=== PATIENT | female | born 2000 | race Hispanic/Latino ===

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

== ENCOUNTER 2019-07-16 13:14 | Emergency (ER) | payer SELFPAY ==
[2019-07-16 13:53] LABS: #Basophils 0.1 thou/uL (0.0-0.2); #Eosinphils 0.1 thou/uL (0.0-0.7); #Lymphocytes 2.4 thou/uL (1.20-3.40); #Monocytes 0.4 thou/uL (0.11-0.59); #Neutrophils 3.7 thou/uL (1.40-6.50); %Basophils 1.1 % (0.0-1.0); %Eosinophils 0.9 % (0.0-10.0); %Lymphocytes 35.8 % (28.0-48.0); %Monocytes 6.4 % (0.0-4.0); %Neutrophils 55.8 % (31.0-61.0); Hemoglobin 13.9 g/dL (12.0-16.0); Mean Corpuscular HGB CONC 33.5 g/dL (32.0-36.0); Mean Corpuscular Hemoglobin 31.7 pg (25.0-35.0); Mean Corpuscular Volume 94.5 fL (78.0-98.0); Mean Platelet Volume 8.5 fL (7.4-10.4); Platelet Count 229 thou/uL (130-400); RBC Distribution Width 11.2 % (11.5-14.5); Red Blood Cell (RBC) Count 4.39 mill/uL (4.00-5.20); White Blood Cell (WBC) Count 6.6 thou/uL (4.8-10.8)
[2019-07-16 14:05] LABS: Bilirubin Negative (Negative); Blood, Urine 3+ (Negative); Clarity Turbid (Clear); Glucose, Urine (Dipstick) Normal (Negative); Leukocyte 250 Leu/uL (Negative); Nitrite Negative (Negative); Protein, Urine (Dipstick) 100 mg/dL (Neg-Trace); RBC/HPF Greater than 50 HPF (0-3); Squamous Epithelial 21-50 HPF (0-3); WBC/HPF Greater than 50 HPF (0-3)
[2019-07-16 14:07] LABS: BHCG - Serum Negative (NEGATIVE); Pregs Control Background? CLEAR/WHITE (CLR/WHITE); Pregs Control Bar Appear? YES (CONTROL BAR)
[2019-07-16 14:12] LABS: Bacteria/HPF 1+ HPF (None Seen)
[2019-07-16 14:13] LABS: ALT (SGPT) 11 U/L (8-55); AST (SGOT) 13 U/L (5-30); Albumin 4.5 g/dL (3.5-5.0); Alkaline Phosphatase 78 U/L (40-100); Anion Gap 11 mmol/L (10-20); BUN (Urea Nitrogen) 13 mg/dL (8.4-21.0); Bilirubin, Total 0.6 mg/dL (0.2-1.2); Calc. Creatinine Clearance 0 mL/min (70-130); Calcium 9.5 mg/dL (7.8-10.44); Carbon Dioxide 26 mmol/L (22-29); Chloride 106 mmol/L (98-107); Estimated GFR-MDRD Greater than 90; Globulin 2.8 g/dL (2.4-3.5); Glucose 92 mg/dL (70-105); Protein, Total 7.3 g/dL (6.0-8.3); Sodium 139 mmol/L (136-145)
[2019-07-16] MEDS ORDERED: Ketorolac Tromethamine 30 MG/ML VIAL ONE (14:32)
== END 2019-07-16 14:50 | disposition home or self-care (01) ==
LOC: ERS 13:14
DX: N94.6 Dysmenorrhea, unspecified (principal); Z87.891 Personal history of nicotine dependence; Z79.899 Other long term (current) drug therapy
CPT/HCPCS: 36415; 80053; 81003; 81015; 84703; 85025; 87077; 87086; 96372; 99283; J1885

== ENCOUNTER 2020-01-26 11:34 | Observation (INO) | payer SELFPAY ==
[2020-01-26 12:17] LABS: Bilirubin Negative (Negative); Blood, Urine Negative (Negative); Clarity Clear (Clear); Glucose, Urine (Dipstick) Normal (Negative); Ketone, Urine 100 mg/dL (Negative); Leukocyte Negative Leu/uL (Negative); Nitrite Negative (Negative); Protein, Urine (Dipstick) 50 mg/dL (Neg-Trace); RBC/HPF 0-3 HPF (0-3); Specific Gravity, Urine 1.031 (1.002-1.036); WBC/HPF 0-3 HPF (0-3)
[2020-01-26 12:27] LABS: Bacteria/HPF Rare-Few HPF (None Seen)
[2020-01-26 12:39] LABS: #Lymphocytes 2.2 thou/uL (1.20-3.40); #Monocytes 0.4 thou/uL (0.11-0.59); #Neutrophils 5.4 thou/uL (1.40-6.50); %Basophils 0.5 % (0.0-1.0); %Eosinophils 0.3 % (0.0-10.0); %Lymphocytes 27.6 % (28.0-48.0); %Neutrophils 66.6 % (31.0-61.0); Hemoglobin 14.5 g/dL (12.0-16.0); Mean Corpuscular HGB CONC 35.3 g/dL (32.0-36.0); Mean Corpuscular Hemoglobin 32.6 pg (25.0-35.0); Mean Corpuscular Volume 92.3 fL (78.0-98.0); Mean Platelet Volume 7.9 fL (7.4-10.4); Platelet Count 241 thou/uL (130-400); RBC Distribution Width 11.2 % (11.5-14.5); Red Blood Cell (RBC) Count 4.44 mill/uL (4.00-5.20); White Blood Cell (WBC) Count 8.1 thou/uL (4.8-10.8)
[2020-01-26 13:01] LABS: ALT (SGPT) 21 U/L (8-55); AST (SGOT) 18 U/L (5-34); Alkaline Phosphatase 82 U/L (40-100); Anion Gap 12 mmol/L (10-20); BUN (Urea Nitrogen) 11 mg/dL (7.0-18.7); Bilirubin, Total 1.2 mg/dL (0.2-1.2); Calc. Creatinine Clearance 0 mL/min (70-130); Carbon Dioxide 27 mmol/L (22-29); Chloride 100 mmol/L (98-107); Estimated GFR-MDRD Greater than 90; Globulin 3.7 g/dL (2.4-3.5); Glucose 84 mg/dL (70-105); Lipase 19 U/L (8-78); Protein, Total 8.7 g/dL (6.0-8.3); Sodium 135 mmol/L (136-145)
[2020-01-26 13:50] LABS: Pregnancy Test - Urine (BHCG) POSITIVE (Negative); Pregu Control Bar Appear? YES (CONTROL BAR); Specific Gravity 1.031 (1.002-1.036)
[2020-01-26 13:51] LABS: Pregu Control Background? CLEAR/WHITE (CLR/WHITE)
--- NOTE | 2020-01-26 15:19 | ULT ---
Pelvic sonogram transabdominal and transvaginal imaging with duplex evaluation HISTORY: Pelvic pain. Positive test. FINDINGS: Urinary bladder is decompressed. Uterus has a heterogeneous echotexture and measures up to 8.5 cm. Cystic structure within the fundal endometrial cavity contains a pole correlating with 6 weeks 0 days gestational size. Heart motion and yolk sac not visible. Physiologic amount of free fluid in the pelvis. Each ovary shows follicles and good color and spectral Doppler flow. Dominant cyst of the left ovary measures up to 3.7 cm. IMPRESSION : Very early intrauterine gestation. Single pole seen. Heart motion not yet visualized. Estimated gestational age 6 weeks 0 days. No evidence of complication. Left ovarian cyst 3.7 cm
[2020-01-26] MEDS ORDERED: Acetaminophen 325 MG TAB PO PRN (17:20)
[2020-01-26] MEDS ORDERED: Doxylamine 25 MG TAB PO PRN (17:25)
[2020-01-26] MEDS ORDERED: Ondansetron PF 4 MG/2 ML Vial ONE (17:45)
[2020-01-26] MEDS: Sodium Chloride 0.9% 1,000 ML IV SCH (20:06)
[2020-01-26 20:21] VITALS: BMI 28.0
[2020-01-26] MEDS: levETIRAcetam 500 MG TAB PO SCH (20:50)
[2020-01-26] MEDS ORDERED: pyridOXINE 50 MG (B6) TAB PO SCH (21:00)
[2020-01-26] MEDS ORDERED: Folic Acid 1 MG TAB PO SCH (21:00)
[2020-01-26] MEDS: pyridOXINE 50 MG (B6) TAB PO SCH (21:33)
--- NOTE | 2020-01-26 22:45 | HP ---
CHIEF COMPLAINT: Nausea, vomiting. HISTORY OF PRESENT ILLNESS: A 19-year-old G2, P1-0-0-1 at approximately 6 weeks gestation, who presented to the emergency department for generalized weakness, nausea, vomiting, and inability to tolerate p.o. She found out she was about a week ago and immediately started taking vitamin. Upon arrival, she was found to have a beta HCG of 38,932, and her ultrasound showed a 6-week pole, but no cardiac activity. There was no definitive yolk sac seen either, so there was a question whether or not this is an ectopic , which is why I was officially consulted. She is otherwise without complaints and denies any vaginal bleeding, abdominal pain, or other concerns. REVIEW OF SYSTEMS: Negative for head, eyes, ears, nose, throat, cardiovascular, respiratory, GI, , neuropsych, musculoskeletal, skin, or constitutional symptoms other than mentioned above. PAST MEDICAL HISTORY: Seizures. PAST SURGICAL HISTORY: None. MEDICATIONS: 1. Keppra 750 mg b.i.d. 2. vitamin. ALLERGIES: NO KNOWN DRUG ALLERGIES. SOCIAL HISTORY: Negative for tobacco, alcohol, or drug abuse. She has good support at home. [employer] HISTORY: One prior uncomplicated spontaneous vaginal delivery at term. FAMILY HISTORY: Noncontributory. PHYSICAL EXAMINATION: VITAL SIGNS: Afebrile, normal vital signs. GENERAL: Awake, alert, in no acute distress. CHEST: Nonlabored breathing. ABDOMEN: Soft, nontender to palpation. PELVIC: Deferred. LABORATORY DATA: HCG 38,932. Mild hyponatremia, but otherwise unremarkable. Urinalysis with 100 ketones and otherwise unremarkable. IMAGING: Revealed a very early uterine gestation with single pole seen. No heart motion yet visualized. Left ovarian cyst measuring 3.7 cm. Physiologic amount of free fluid in the pelvis. ASSESSMENT AND PLAN: A 19-year-old, G2, P1-0-0-1 at approximately 6 weeks gestation with no cardiac activity at this point. I do not feel that this is consistent with an ectopic and it is more likely an early gestation. After discussing the reasoning for the patient coming in, she has not been able to keep anything down for several days and has felt progressively more weak and dizzy. I will place her on observation for IV fluids and we will start her on pyridoxine and doxylamine. I wrote for her home dose of Keppra 750 mg b.i.d. I also wrote for 1 mg of folic acid, which she will need to continue when she is out of the hospital due to increased need for her seizures. Job ID: [id number] MTDD
[2020-01-27] MEDS: Sodium Chloride 0.9% 1,000 ML IV SCH (03:17)
--- NOTE | 2020-01-27 06:25 | PDOC.FM ---
- Subjective Subjective: Feeling well. Tolerated clear liquids overnight. Denies nausea or vomiting all night. Would like to advance diet. - Objective MAR Reviewed: Yes Vital Signs & Weight: Vital Signs (12 hours) Temp Pulse Resp BP BP BP Pulse Ox 01/27/20 04:00 98.8 F 79 18 92/54 L 01/27/20 00:20 98.0 F 91 18 93/54 L 01/26/20 20:00 98.0 F 89 18 98/59 L 98/59 L 99 Weight Admit Weight 65 kg Weight 65 kg I&O: 01/25/20 01/26/20 01/27/20 06:59 06:59 06:59 Intake Total 3057 Balance 3057 Result Diagrams: 01/26/20 12:29 01/26/20 12:29 Phys Exam - Physical Examination Constitutional: NAD HEENT: moist MMs, sclera anicteric Neck: supple Respiratory: no wheezing, clear to auscultation bilateral Cardiovascular: RRR, no significant murmur Gastrointestinal: soft, non-tender Musculoskeletal: no edema Neurological: non-focal Psychiatric: normal affect, A&O x 3 Skin: no rash, normal turgor Dx/Plan - Plan Plan: 19yo at 6.1wks admitted for intractable nausea and vomiting as well as weakness - Will dc IVF and advance diet to regular - Continue home Keppra and dc with 1mg folic acid daily - Continue pyridoxine and doxylamine - Like dc home later today if tolerating PO Addendum - Attending - Attending Attestation Date/Time: 01/27/20 0654 I personally evaluated the patient and discussed the management with Dr. Dowd. I agree with the History, Examination, Assessment and Plan documented above.
[2020-01-27] MEDS: pyridOXINE 50 MG (B6) TAB PO SCH (06:46)
[2020-01-27 08:27] VITALS: BP 93/61; TEMP 98.4
[2020-01-27] MEDS ORDERED: FLU VACC QS2020-21(6MOS UP)/PF 60 MCG/0.5 ML SYRINGE IM ONE (09:00)
--- NOTE | 2020-01-27 09:25 | DIS ---
DATE OF ADMISSION: 01/26/2020 DATE OF DISCHARGE: 01/27/2020 DATE OF OBSERVATION: January 26, 2020. DATE OF RELEASE: January 27, 2020. PRINCIPAL DIAGNOSES: 1. First trimester , not otherwise specified. 2. History of seizure disorder, on Keppra. 3. Nausea, vomiting of . PRINCIPAL PROCEDURES: 1. Obstetrical ultrasound. 2. Observation for nausea, vomiting. HOSPITAL COURSE: In brief, this patient was admitted by Dr. Raquel Lee, my partner, yesterday for observation of nausea and vomiting. She was initially asked to evaluate the ultrasound based on the ER physician's/provider's request to rule out ectopic. The patient's beta-hCG was roughly 30,000 with "nothing in the uterus" according to the ER provider. However, Dr. Lee and I did review the images and we do see a gestational sac that appears to have decidualization around it and what appears to be a hydropic yolk sac, although there is no pole within. There is also a cyst on the ovary, but it does not look compatible with an ectopic . The patient's abdomen is soft, and she is clinically well, which makes ectopic still possible but less likely. I evaluated the patient at bedside along with Dr. Betty Good at approximately 0845, it is now 0855. I discussed with her at details. I discussed with her in detail at bedside the unsure location of the and stressed need for followup by Wednesday of next week with [facility]/Dr. Jefferson. I did discuss with her the possibility of ectopic , but I did mention my suspicion that this is much more likely to be, unfortunately, a miscarriage. However, not having a clear diagnosis of location, it is imperative that she follow up next week. In regard to her epilepsy, we did reassure her that Keppra is [employer] ([employer]) approved in . We also discussed with her supplemental folic acid, although time of organogenesis has actually passed. I did instruct her that her nausea and vomiting will likely improve as the progresses and we will make sure that she is going home on Diclegis for nausea, vomiting. By time of this morning, she was able to tolerate some diet, but still had some nausea, and states that she "threw up her grapes." I did tell her that it was not possible to remove all symptoms, but our goal was simply to alleviate them. Job ID: [id number]
[2020-01-27] MEDS: levETIRAcetam 500 MG TAB PO SCH (10:03)
== END 2020-01-27 10:10 | disposition home or self-care (01) ==
LOC: ERS 11:34 → 3SE 17:20
PROVIDERS: ADMIT Obstetrics & Gynecology; ATTEND Obstetrics & Gynecology
DX: O21.9 Vomiting of pregnancy, unspecified (principal); O34.81 Maternal care for other abnormalities of pelvic organs, first trimester; N83.202 Unspecified ovarian cyst, left side; O99.351 Diseases of the nervous system complicating pregnancy, first trimester; G40.909 Epilepsy, unspecified, not intractable, without status epilepticus; Z79.899 Other long term (current) drug therapy; Z3A.01 Less than 8 weeks gestation of pregnancy
CPT/HCPCS: 36415; 76856; 80053; 81003; 81015; 81025; 83690; 84702; 85025; 86900; 86901; 96374; G0378; J2405

== ENCOUNTER 2020-02-01 12:26 | Emergency (ER) | payer SELFPAY ==
--- NOTE | 2020-02-01 14:57 | ULT ---
Exam: Transabdominal and endovaginal pelvic ultrasound HISTORY:Early . Pelvic pain. COMPARISON:01/26/2020. TECHNIQUE: Transabdominal and endovaginal imaging of the pelvis is performed. Ovaries are interrogate d with grayscale, color flow, Doppler imaging and spectral wave form analysis FINDINGS: Uterus: No myometrial masses. Endometrium: Within the endometrium, there is a gestational sac, yolk sac and pole. [facility] [place]-rump length is 0.63 cm corresponding to gestational age of 6 weeks 3 days. Previously, the crown-rump length was 0.34 cm corresponding to 6 weeks 0 days. Subchorionic hemorrhage: None heart tones: 108 bpm Free fluid: Small amount of fluid in the cul-de-sac Right ovary: Normal echotexture dominant follicle is noted. Right ovary measurement: 2.3 x 1.9 x 2.0 cm Left ovary: Normal echotexture. Left ovarian cyst is redemonstrated, measuring 2.8 x 1.6 x 2.6 cm Left ovary measurements: 4.4 x 3.2 x 3.8 cm Ovarian Doppler: There is vascular flow to the left and right ovary. IMPRESSION: 1. Redemonstration of a single gestation. Gestational age by crown-rump length is 6 weeks 3 days. Pre viously, the gestational age by crown-rump length is 6 weeks 0 days. 2. heart tones with a rate of 180 bpm. 3. Redemonstration of a left ovarian cyst.
== END 2020-02-01 15:34 | disposition home or self-care (01) ==
LOC: ERS 12:26
DX: O99.891 Other specified diseases and conditions complicating pregnancy (principal); R10.30 Lower abdominal pain, unspecified; O99.351 Diseases of the nervous system complicating pregnancy, first trimester; G40.909 Epilepsy, unspecified, not intractable, without status epilepticus; Z3A.08 8 weeks gestation of pregnancy; Z79.899 Other long term (current) drug therapy; Z87.891 Personal history of nicotine dependence
CPT/HCPCS: 36415; 76856; 84702

== ENCOUNTER 2021-01-25 19:53 | Emergency (ER) | payer MEDICAID, SELFPAY ==
[2021-01-25 20:51] LABS: Bacteria/HPF None Seen HPF (None Seen); Bilirubin Negative (Negative); Blood, Urine 3+ (Negative); Clarity Clear (Clear); Glucose, Urine (Dipstick) Normal (Negative); Ketone, Urine Negative (Negative); Leukocyte Negative Leu/uL (Negative); Nitrite Negative (Negative); Protein, Urine (Dipstick) Negative (Neg-Trace); Specific Gravity, Urine 1.011 (1.002-1.036); Squamous Epithelial None Seen HPF (0-3); Urobilinogen Normal mg/dL (Less than 2); WBC/HPF 0-3 HPF (0-3); pH, Urine 6.5 (5.0-9.0)
[2021-01-25 20:52] LABS: Pregnancy Test - Urine (BHCG) Negative (Negative); Pregu Control Background? CLEAR/WHITE (CLR/WHITE); Pregu Control Bar Appear? YES (CONTROL BAR); Specific Gravity 1.011 (1.002-1.036)
[2021-01-25 21:08] LABS: #Basophils 0.1 thou/uL (0.0-0.2); #Eosinphils 0.1 thou/uL (0.0-0.7); #Monocytes 0.5 thou/uL (0.11-0.59); #Neutrophils 2.9 thou/uL (1.40-6.50); %Basophils 0.8 % (0.0-1.0); %Eosinophils 1.5 % (0.0-10.0); %Lymphocytes 46.3 % (21.0-51.0); %Monocytes 6.9 % (0.0-10.0); %Neutrophils 44.4 % (42.0-75.0); Hemoglobin 12.5 g/dL (12.0-16.0); Mean Corpuscular HGB CONC 35.6 g/dL (32.0-36.0); Mean Corpuscular Hemoglobin 32.9 pg (27.0-31.0); Mean Corpuscular Volume 92.5 fL (78.0-98.0); Mean Platelet Volume 7.9 fL (7.4-10.4); Platelet Count 232 thou/uL (130-400); RBC Distribution Width 10.8 % (11.5-14.5); Red Blood Cell (RBC) Count 3.79 mill/uL (4.20-5.40); White Blood Cell (WBC) Count 6.6 thou/uL (4.8-10.8)
[2021-01-25] MEDS ORDERED: Ketorolac Tromethamine 30 MG/ML VIAL ONE (21:34)
[2021-01-25 21:36] LABS: ALT (SGPT) 12 U/L (8-55); AST (SGOT) 20 U/L (5-34); Alkaline Phosphatase 65 U/L (40-110); Anion Gap 15 mmol/L (10-20); BUN (Urea Nitrogen) 14 mg/dL (7.0-18.7); Bilirubin, Total 0.3 mg/dL (0.2-1.2); Calc. Creatinine Clearance 0 mL/min (70-130); Calcium 9.4 mg/dL (7.8-10.44); Carbon Dioxide 25 mmol/L (22-29); Chloride 103 mmol/L (98-107); Globulin 3.1 g/dL (2.4-3.5); Glucose 94 mg/dL (70-105); Lipase 29 U/L (8-78); Protein, Total 7.1 g/dL (6.0-8.3); Sodium 138 mmol/L (136-145)
== END 2021-01-25 23:34 | disposition home or self-care (01) ==
LOC: ERS 19:53
DX: R10.9 Unspecified abdominal pain (principal); R31.9 Hematuria, unspecified; G43.909 Migraine, unspecified, not intractable, without status migrainosus; Z87.891 Personal history of nicotine dependence; Z79.899 Other long term (current) drug therapy
CPT/HCPCS: 36415; 74176; 80053; 81003; 81015; 81025; 83690; 85025; 96372; J1885

== ENCOUNTER 2021-06-07 11:00 | Emergency (ER) | payer SELFPAY ==
[2021-06-07 11:34] LABS: Pregnancy Test - Urine (BHCG) POSITIVE (Negative); Pregu Control Background? CLEAR/WHITE (CLR/WHITE); Pregu Control Bar Appear? YES (CONTROL BAR)
[2021-06-07 11:35] LABS: Bacteria/HPF None Seen HPF (None Seen); Bilirubin Negative (Negative); Blood, Urine Trace (Negative); Clarity Clear (Clear); Glucose, Urine (Dipstick) Normal (Negative); Ketone, Urine Negative (Negative); Leukocyte Negative Leu/uL (Negative); Nitrite Negative (Negative); Protein, Urine (Dipstick) Negative (Neg-Trace); RBC/HPF 0-3 HPF (0-3); Specific Gravity 1.023 (1.002-1.036); Specific Gravity, Urine 1.023 (1.002-1.036); Urobilinogen Normal mg/dL (Less than 2); WBC/HPF 0-3 HPF (0-3)
[2021-06-07 11:39] LABS: #Basophils 0.1 thou/uL (0.0-0.2); #Eosinphils 0.2 thou/uL (0.0-0.7); #Lymphocytes 2.5 thou/uL (1.20-3.40); #Monocytes 0.3 thou/uL (0.11-0.59); #Neutrophils 3.8 thou/uL (1.40-6.50); %Basophils 0.8 % (0.0-1.0); %Eosinophils 2.4 % (0.0-10.0); %Lymphocytes 36.3 % (21.0-51.0); %Monocytes 4.7 % (0.0-10.0); %Neutrophils 55.8 % (42.0-75.0); Mean Corpuscular HGB CONC 34.3 g/dL (32.0-36.0); Mean Corpuscular Hemoglobin 32.9 pg (27.0-31.0); Mean Platelet Volume 7.6 fL (7.4-10.4); Platelet Count 218 thou/uL (130-400); RBC Distribution Width 11.9 % (11.5-14.5); Red Blood Cell (RBC) Count 4.26 mill/uL (4.20-5.40); White Blood Cell (WBC) Count 6.8 thou/uL (4.8-10.8)
[2021-06-07 11:59] LABS: ALT (SGPT) 11 U/L (8-55); AST (SGOT) 15 U/L (5-34); Albumin 4.4 g/dL (3.5-5.0); Alkaline Phosphatase 63 U/L (40-110); Anion Gap 14 mmol/L (10-20); BUN (Urea Nitrogen) 13 mg/dL (7.0-18.7); Calc. Creatinine Clearance 0 mL/min (70-130); Calcium 9.4 mg/dL (7.8-10.44); Carbon Dioxide 24 mmol/L (22-29); Chloride 102 mmol/L (98-107); Globulin 3.1 g/dL (2.4-3.5); Glucose 90 mg/dL (70-105); Potassium 3.9 mmol/L (3.5-5.1); Protein, Total 7.5 g/dL (6.0-8.3); Sodium 136 mmol/L (136-145)
[2021-06-07] MEDS ORDERED: Acetaminophen 500 MG TAB ONE (12:05)
== END 2021-06-07 13:33 | disposition home or self-care (01) ==
LOC: ERS 11:00
DX: O20.0 Threatened abortion (principal); O99.351 Diseases of the nervous system complicating pregnancy, first trimester; G40.909 Epilepsy, unspecified, not intractable, without status epilepticus; Z79.899 Other long term (current) drug therapy; Z3A.01 Less than 8 weeks gestation of pregnancy
CPT/HCPCS: 36415; 76856; 80053; 81003; 81015; 81025; 84702; 85025; 86900; 86901; 93976

== ENCOUNTER 2021-10-21 11:32 | Emergency (ER) | payer SELFPAY | END 2021-10-21 13:02 | disposition home or self-care (01) | LOC: ERS 11:32 | DX: Z76.0 Encounter for issue of repeat prescription (principal); G40.909 Epilepsy, unspecified, not intractable, without status epilepticus | CPT/HCPCS: 99281 ==

== ENCOUNTER 2022-06-18 09:50 | Emergency (ER) | payer SELFPAY ==
[2022-06-18 10:51] LABS: Bacteria/HPF None Seen HPF (None Seen); Bilirubin Negative (Negative); Blood, Urine Trace (Negative); Clarity Clear (Clear); Glucose, Urine (Dipstick) Normal (Negative); Ketone, Urine Negative (Negative); Leukocyte 25 Leu/uL (Negative); Nitrite Negative (Negative); Pregnancy Test - Urine (BHCG) Negative (Negative); Pregu Control Background? CLEAR/WHITE (CLR/WHITE); Pregu Control Bar Appear? YES (CONTROL BAR); Protein, Urine (Dipstick) Negative (Neg-Trace); RBC/HPF 0-3 HPF (0-3); Urobilinogen 3 mg/dL (Less than 2); WBC/HPF 0-3 HPF (0-3)
== END 2022-06-18 11:03 | disposition home or self-care (01) ==
LOC: ERS 09:50
DX: R10.9 Unspecified abdominal pain (principal); G40.909 Epilepsy, unspecified, not intractable, without status epilepticus
CPT/HCPCS: 81003; 81015; 81025; 99284

== ENCOUNTER 2023-04-26 15:39 | Emergency (ER) | payer SELFPAY ==
[2023-04-26 16:31] LABS: #Eosinphils 0.1 thou/uL (0.0-0.7); #Monocytes 0.6 thou/uL (0.11-0.59); #Neutrophils 5.3 thou/uL (1.40-6.50); %Basophils 0.3 % (0.0-1.0); %Eosinophils 1.2 % (0.0-10.0); %Lymphocytes 33.7 % (21.0-51.0); %Monocytes 6.4 % (0.0-10.0); %Neutrophils 58.2 % (42.0-75.0); Hematocrit 40.8 % (36.0-47.0); Hemoglobin 13.8 g/dL (12.0-16.0); Mean Corpuscular HGB CONC 33.8 g/dL (32.0-36.0); Mean Corpuscular Hemoglobin 31.4 pg (27.0-31.0); Mean Corpuscular Volume 92.7 fl (78.0-98.0); Mean Platelet Volume 9.7 fL (7.4-10.4); Platelet Count 270 10x3/uL (130-400); RBC Distribution Width 12.2 % (11.5-14.5); White Blood Cell (WBC) Count 9.2 10x3/uL (4.8-10.8)
[2023-04-26 16:39] LABS: BHCG - Serum Negative (NEGATIVE); Pregs Control Background? CLEAR/WHITE (CLR/WHITE); Pregs Control Bar Appear? YES (CONTROL BAR)
[2023-04-26 17:05] LABS: ALT (SGPT) 35 U/L (8-55); AST (SGOT) 22 U/L (5-34); Albumin 4.2 g/dL (3.5-5.0); Alkaline Phosphatase 85 U/L (40-110); Anion Gap 11 mmol/L (10-20); BUN (Urea Nitrogen) 14 mg/dL (7.0-18.7); Bilirubin, Total 0.5 mg/dL (0.2-1.2); Calc. Creatinine Clearance 0 mL/min (70-130); Calcium 9.1 mg/dL (7.8-10.44); Carbon Dioxide 24 mmol/L (22-29); Chloride 106 mmol/L (98-107); Estimated GFR 115; Globulin 3.1 g/dL (2.4-3.5); Glucose 92 mg/dL (70-105); Potassium 4.4 mmol/L (3.5-5.1); Protein, Total 7.3 g/dL (6.0-8.3); Sodium 137 mmol/L (136-145)
== END 2023-04-26 17:32 | disposition home or self-care (01) ==
LOC: ERS 15:39
DX: R56.9 Unspecified convulsions (principal)
CPT/HCPCS: 36415; 80053; 80177; 84703; 85025; 99285